=== PATIENT | female | born 1945 | race African-American/Black ===

== ENCOUNTER 2018-10-07 14:25 | Emergency (ER) | payer OTHER ==
[2018-10-07 14:30] VITALS: PULSE 91; TEMP 98.4; BMI 30.9
--- NOTE | 2018-10-07 15:17 | PDOC ---
History of Present Illness - General Chief Complaint: Headache Stated Complaint: HEADACHE Time Seen by Provider: 10/07/18 14:44 History Source: Patient Exam Limitations: No Limitations - History of Present Illness Initial Comments: 73 yo F history of HTN presents with headache. She was recently treated for bronchitis with azithromycin. She states she noticed that her blood pressure was a bit higher than normal today (SBP 140s, normally she is in the 120s), became concerned. In addition to that, she developed a mild headache to the top of her head and to her temples bilaterally. She does not typically get headaches , so this was concerning. Denies weakness, numbness, speech changes. Past History - Past Medical History Allergies/Adverse Reactions: Allergies Allergy/AdvReac Type Severity Reaction Status Date / Time Penicillins Allergy Verified 10/07/18 14:26 Home Medications: Ambulatory Orders Aspirin [Aspirin EC] 81 mg PO DAILY 10/07/18 Losartan/Hydrochlorothiazide [Losartan-Hctz 100-25 mg Tab] 1 each PO DAILY 10/07 Promethazine HCl 6.25 mg PO Q6H PRN 10/07/18 COPD: No HTN: Yes - Suicide/Smoking/Psychosocial Hx Smoking History: Never smoked Have you smoked in the past 12 months: No Information on smoking cessation initiated: No Hx Alcohol Use: No Review of Systems - Review of Systems Able to Perform ROS?: Yes Comments:: GENERAL/CONSTITUTIONAL: No fever or chills. No weakness. HEAD, EYES, EARS, NOSE AND THROAT: No change in vision. No ear pain or discharge. No sore throat. CARDIOVASCULAR: No chest pain or shortness of breath. RESPIRATORY: No cough, wheezing, or hemoptysis. GASTROINTESTINAL: No nausea, vomiting, diarrhea or constipation. GENITOURINARY: No dysuria, frequency, or change in urination. MUSCULOSKELETAL: No joint or muscle swelling or pain. No neck or back pain. SKIN: No rash NEUROLOGIC: +Headache. No vertigo, loss of consciousness, or change in strength/ sensation. ENDOCRINE: No increased thirst. No abnormal weight change. HEMATOLOGIC/LYMPHATIC: No anemia, easy bleeding, or history of blood clots. ALLERGIC/IMMUNOLOGIC: No hives or skin allergy. *Physical Exam - Vital Signs Last Vital Signs Temp Pulse Resp BP Pulse Ox 98.4 F 91 H 18 169/111 H 97 10/07/18 14:25 10/07/18 14:25 10/07/18 14:25 10/07/18 14:25 10/07/18 14:25 - Physical Exam Comments: GENERAL: Awake, alert, and fully oriented, in no acute distress HEAD: No signs of trauma EYES: PERRLA, EOMI, sclera anicteric, conjunctiva clear ENT: Auricles normal inspection, hearing grossly normal, nares patent, oropharynx clear without exudates. Moist mucosa NECK: Normal ROM, supple, no lymphadenopathy, JVD, or masses LUNGS: Breath sounds equal, clear to auscultation bilaterally. No wheezes, and no crackles HEART: Regular rate and rhythm, normal S1 and S2, no murmurs, rubs or gallops ABDOMEN: Soft, nontender, normoactive bowel sounds. No guarding, no rebound. No masses EXTREMITIES: Normal range of motion, no edema. No clubbing or cyanosis. No cords, erythema, or tenderness NEUROLOGICAL: Cranial nerves II through XII grossly intact. Normal speech, normal gait. Motor and sensation intact. SKIN: Warm, Dry, normal turgor, no rashes or lesions noted. Moderate Sedation - Procedure Monitoring Vital Signs: Procedure Monitoring Vital Signs Temperature 98.4 F 10/07/18 14:25 Pulse Rate 91 H 10/07/18 14:25 Respiratory Rate 18 10/07/18 14:25 Blood Pressure 169/111 H 10/07/18 14:25 O2 Sat by Pulse Oximetry (%) 97 10/07/18 14:25 Medical Decision Making - Medical Decision Making CTH reviewed, no acute findings. Very low suspicion for ICH based on clinical eval. Stable for DC home. *DC/Admit/Observation/Transfer Diagnosis at time of Disposition: Headache Qualifiers: Headache type: unspecified Headache chronicity pattern: unspecified pattern Intractability: not intractable Qualified Code(s): R51 - Headache Hypertension Qualifiers: Hypertension type: unspecified Qualified Code(s): I10 - Essential (primary) hypertension - Discharge Dispostion Disposition: HOME Condition at time of disposition: Stable Decision to Admit order: No - Referrals Referrals: Dipti Jolley MD [Primary Care Provider] - - Patient Instructions Printed Discharge Instructions: DI for High Blood Pressure, DI for Headache - Post Discharge Activity
[2018-10-07 17:09] VITALS: BP 159/94
== END 2018-10-07 17:09 | disposition home or self-care (01) ==
LOC: FER 14:25
DX: I10 Essential (primary) hypertension (principal); R51 Headache
CPT/HCPCS: 70450-TC; 99282-25

== ENCOUNTER 2022-11-26 11:33 | Emergency (ER) | payer OTHER ==
[2022-11-26 11:54] VITALS: BP 137/84; PULSE 71; RESP 20; TEMP 98.2; BMI 31.6
[2022-11-26] MEDS ORDERED: SODIUM CHLORIDE 0.9% 500 ML INFUS.BAG IV ONE (12:43)
[2022-11-26 13:09] LABS: ACTIVATED PTT 28.6 SECONDS (25.2-36.5); INR 1.03 (0.83-1.09); PROTHROMBIN TIME (PATIENT) 11.8 SEC (9.7-13.0)
[2022-11-26 13:10] LABS: HEMATOCRIT 38.7 % (32.4-45.2); HEMOGLOBIN 12.9 G/dL (10.7-15.3); MCH 28.7 pg (25.7-33.7); MCHC 33.3 g/dl (32.0-36.0); MEAN CELL VOLUME 86.1 fl (80-96); MEAN PLT VOLUME 8.8 fl (7.5-11.1); PLATELET COUNT 238.6 10^3/uL (134-434); RBC 4.49 10^6/uL (3.60-5.2); RDW 14.2 % (11.6-15.6); WHITE BLOOD COUNT 7.7 10^3/uL (4.0-10.8)
[2022-11-26 13:15] LABS: ALBUMIN 3.6 g/dl (3.4-5.0); BILIRUBIN,TOTAL 0.6 mg/dl (0.2-1); CALCIUM 9.2 mg/dl (8.5-10); CREATININE 0.9 mg/dl (0.55-1.3)
== END 2022-11-26 16:15 | disposition home or self-care (01) ==
LOC: FER 11:33
DX: R00.2 Palpitations (principal)
CPT/HCPCS: 36415; 71045-TC-FY; 80053; 83735; 84484; 85027; 85610; 85730; 93005; 99285-25

== ENCOUNTER 2023-06-02 09:53 | Emergency (ER) | payer OTHER ==
[2023-06-02 10:11] VITALS: RESP 18; TEMP 97.7; BMI 31.6
[2023-06-02 11:42] LABS: HEMATOCRIT 42.9 % (32.4-45.2); HEMOGLOBIN 13.9 G/dL (10.7-15.3); MCH 28.2 pg (25.7-33.7); MCHC 32.4 g/dl (32.0-36.0); MEAN CELL VOLUME 87.1 fl (80-96); MEAN PLT VOLUME 7.9 fl (7.5-11.1); RBC 4.93 10^6/uL (3.60-5.2); RDW 15.4 % (11.6-15.6); WHITE BLOOD COUNT 6.8 10^3/uL (4.0-10.8)
[2023-06-02 11:49] LABS: ALBUMIN 4.2 g/dl (3.4-5.0); BILIRUBIN,TOTAL 0.7 mg/dl (0.2-1); BLOOD UREA NITROGEN 13.7 mg/dl (7-18); CALCIUM 9.5 mg/dl (8.5-10.1); POTASSIUM 3.9 mmol/L (3.5-5.1); SGOT/AST 19.6 U/L (15-37); SGPT/ALT 16.8 U/L (7-52); TOT PROT 7.1 g/dl (6.4-8.2)
[2023-06-02 11:51] LABS: PLATELET ESTIMATE ADEQUATE
[2023-06-02 13:36] VITALS: BP 132/89; PULSE 87
== END 2023-06-02 14:05 | disposition home or self-care (01) ==
LOC: FER 09:53
DX: H53.8 Other visual disturbances (principal); R51.9 Headache, unspecified; R09.81 Nasal congestion; R00.2 Palpitations; Z20.822 Contact with and (suspected) exposure to COVID-19
CPT/HCPCS: 0241U-QW; 36415; 70450-TC; 71045-TC-FY; 80053; 84443; 85027; 93005; 99285-25

== ENCOUNTER 2023-09-14 09:19 | Emergency (ER) | payer OTHER ==
[2023-09-14 09:29] VITALS: RESP 16; TEMP 98; BMI 30.8
[2023-09-14 10:01] LABS: HEMATOCRIT 42.3 % (32.4-45.2); HEMOGLOBIN 13.4 G/dL (10.7-15.3); MCH 27.6 pg (25.7-33.7); MCHC 31.7 g/dl (32.0-36.0); MEAN PLT VOLUME 9.2 fl (7.5-11.1); PLATELET COUNT 213.2 10^3/uL (134-434); RBC 4.86 10^6/uL (3.60-5.2); RDW 15.7 % (11.6-15.6); WHITE BLOOD COUNT 8.1 10^3/uL (4.0-10.8)
[2023-09-14 10:02] LABS: INR 1.05 (0.83-1.09); PROTHROMBIN TIME (PATIENT) 12.2 SEC (9.7-13.0)
[2023-09-14 10:04] LABS: ACTIVATED PTT 31.6 SECONDS (25.2-36.5)
[2023-09-14 10:17] LABS: PLATELET ESTIMATE ADEQUATE
[2023-09-14 10:28] LABS: ALBUMIN 4.1 g/dl (3.4-5.0); BILIRUBIN,TOTAL 0.7 mg/dl (0.2-1); CALCIUM 9.6 mg/dl (8.5-10.1); CREATININE 0.9 mg/dl (0.6-1.3); POTASSIUM 3.7 mmol/L (3.5-5.1); TOT PROT 6.7 g/dl (6.4-8.2)
[2023-09-14 10:54] VITALS: BP 140/80; PULSE 78
== END 2023-09-14 10:55 | disposition home or self-care (01) ==
LOC: FER 09:19
DX: K92.1 Melena (principal)
CPT/HCPCS: 36415; 80053; 82272; 85027; 85610; 85730; 86850; 86900; 86901; 99283-25

== ENCOUNTER 2024-02-14 19:09 | Emergency (ER) | payer OTHER ==
[2024-02-14 19:24] VITALS: BP 165/99; PULSE 73; RESP 16; TEMP 98.1; BMI 30.8
[2024-02-14 19:51] LABS: HEMATOCRIT 42.2 % (32.4-45.2); HEMOGLOBIN 13.3 G/dL (10.7-15.3); MCH 27.1 pg (25.7-33.7); MCHC 31.5 g/dl (32.0-36.0); MEAN CELL VOLUME 86.1 fl (80-96); MEAN PLT VOLUME 8.5 fl (7.5-11.1); PLATELET COUNT 213.9 10^3/uL (134-434); RDW 15.1 % (11.6-15.6)
[2024-02-14 20:14] LABS: ALBUMIN 4.1 g/dl (3.4-5.0); BILIRUBIN,TOTAL 0.3 mg/dl (0.2-1); CALCIUM 9.8 mg/dl (8.5-10.1); CREATININE 1.2 mg/dl (0.6-1.3); POTASSIUM 3.9 mmol/L (3.5-5.1); TOT PROT 6.6 g/dl (6.4-8.2)
== END 2024-02-14 20:48 | disposition home or self-care (01) ==
LOC: FER 19:09
DX: R07.89 Other chest pain (principal)
CPT/HCPCS: 36415; 71045-TC-FY; 80053; 82550; 82553; 84484; 85027; 93005; 99285-25